=== PATIENT | female | born 1990 ===

== ENCOUNTER 2021-05-29 14:52 | Emergency (ER) | payer OTHER ==
[~2021-05-29] VITALS: Ht 157.5 cm; Wt 61.2 kg
[2021-05-29 15:50] VITALS: BP 143/61
[2021-05-29] MEDS: SILVER SULFADIAZINE 1 % TOPICAL CREAM 50GM TOP ONE (16:31)
== END 2021-05-29 17:02 | disposition home or self-care (01) ==
LOC: ER 14:52
DX: T20.20XA Burn of second degree of head, face, and neck, unspecified site, initial encounter (principal); Z86.73 Personal history of transient ischemic attack (TIA), and cerebral infarction without residual deficits; X18.XXXA Contact with other hot metals, initial encounter; Y93.89 Activity, other specified; Y92.89 Other specified places as the place of occurrence of the external cause; Y99.8 Other external cause status
CPT/HCPCS: 16020